=== PATIENT | male | born 1975 | race Caucasian/White ===

== ENCOUNTER 2020-12-11 13:58 | Emergency (ER) | payer BC ==
[~2020-12-11] VITALS: Ht 172.7 cm; Wt 138.6 kg
[2020-12-11] MEDS ORDERED: DIAZEPAM 5 MG TABLET PO ONE (15:00)
[2020-12-11] MEDS ORDERED: KETOROLAC 30 MG/1 ML IM ONE (15:00)
--- NOTE | 2020-12-11 15:29 | NUR ---
SALES REPRESENTATIVES: PT AMBULATORY TO ROOM FROM LOBBY
[2020-12-11] MEDS ORDERED: KETOROLAC 30 MG/1 ML ONE (15:46)
[2020-12-11] MEDS ORDERED: DIAZEPAM 5 MG TABLET ONE (15:46)
--- NOTE | 2020-12-11 15:52 | NUR ---
MEDS ADMIN PER OCT.
[2020-12-11 16:40] LABS: ALBUMIN 3.5 g/dL (3.4-5.0); ANION GAP 4 mmol/L (5-15); CHLORIDE 106 mmol/L (98-107); CREATININE 0.99 mg/dL (0.7-1.3)
--- NOTE | 2020-12-11 16:47 | NUR ---
BREAK RN: PT PROVIDED UA. RESTING IN BED. VSS. NADN. AT BEDSIDE.
[2020-12-11 16:51] LABS: BASOPHILS % (AUTO) 1 % (0-1); EOSINOPHILS % (AUTO) 2 % (1-7); LYMPHOCYTES % (AUTO) 24 % (22-44); MEAN CORPUSCULAR HEMOGLOBIN 32.1 pg (27.5-34.5); MEAN PLATELET VOLUME 8.3 fL (7.4-10.4); MONOCYTES % (AUTO) 7 % (2-9); NEUTROPHILS % (AUTO) 66 % (42-75); PLATELET COUNT 274 x10^3/uL (130-400); RED BLOOD COUNT 5.16 x10^6/uL (4.38-5.82); RED CELL DISTRIBUTION WIDTH 14.1 % (9.4-14.8)
[2020-12-11 16:53] LABS: MD NO
[2020-12-11 16:58] LABS: MICROSCOPIC NOT IND
--- NOTE | 2020-12-11 18:02 | NUR ---
ALL RESULTS ARE BACK AT THIS TIME. CHART UP FOR RECHECK.
[2020-12-11 18:21] VITALS: BP 123/82
--- NOTE | 2020-12-11 18:21 | NUR ---
PT STATES PAIN IS BETTER.
[2020-12-11] MEDS ORDERED: LIDODERM 5% PATCH TD ONE ×2 (18:38→19:00)
--- NOTE | 2020-12-11 18:40 | NUR ---
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
--- NOTE | 2020-12-11 19:08 | NUR ---
PT STATES LIDO PATCH HELPED WITH PAIN.
== END 2020-12-11 19:09 | disposition home or self-care (01) ==
LOC: ED 15:51
DX: S39.012A Strain of muscle, fascia and tendon of lower back, initial encounter (principal); M62.830 Muscle spasm of back; I51.7 Cardiomegaly; I45.10 Unspecified right bundle-branch block; X58.XXXA Exposure to other specified factors, initial encounter; Y93.89 Activity, other specified; Y92.89 Other specified places as the place of occurrence of the external cause; Y99.8 Other external cause status
CPT/HCPCS: 36415; 72072; 72110; 80048; 81003; 82040; 85025; 93005; 96372; 99285; J1885